=== PATIENT | female | born 1935 | race Caucasian/White ===

== ENCOUNTER 2020-08-21 14:07 | Outpatient (REF) | payer MEDICARE, SELFPAY ==
[2020-08-21 18:15] LABS: Glucose Urine UA NEG (NEG); Leukocyte Esterase Urine NEG (NEG); Nitrite Urine NEG (NEG); PH 6.5 (5.0-8.0); Specific Gravity - Urine 1.015 (1.005-1.025); Urine Blood NEG (NEG); Urine Ketones NEG (NEG); Urine Protein NEG (NEG-TRACE)
[2020-08-21 18:16] LABS: Appearance Urine CLEAR; Color Urine YELLOW
== END 2020-08-21 14:08 | disposition home or self-care (01) ==
LOC: HO.MANLNP 14:07
PROVIDERS: PCP Internal Medicine; Visit Provider Internal Medicine
DX: N39.0 Urinary tract infection, site not specified (principal)
CPT/HCPCS: 81003; 87086; 87088; 87186

== ENCOUNTER 2020-09-04 11:25 | Outpatient (REF) | payer MEDICARE, MEDICAID, SELFPAY ==
[2020-09-04 13:23] LABS: Alanine Aminotransferase 17 U/L (0-31); Albumin Level 3.7 g/dL (3.5-5.0); Alkaline Phosphatase 83 U/L (39-117); Anion Gap 15 (12-20); Aspartate Amino Transferase 15 U/L (5-31); Bilirubin Total 0.6 mg/dL (0.0-1.0); Blood Urea Nitrogen 45 mg/dL (9-16); Calcium 8.9 mg/dL (8.4-10.2); Carbon Dioxide 23 mmol/L (22-29); Chloride 105 mmol/L (96-108); Estimated Glomerular Filt Rate 29; Glucose Random 126 mg/dL (60-115); Potassium 5.3 mmol/L (3.3-5.1); Sodium 138 mmol/L (135-145)
== END 2020-09-04 11:26 | disposition home or self-care (01) ==
LOC: HO.MANLDS 11:25
PROVIDERS: PCP Internal Medicine; Visit Provider Physician Assistant
DX: N18.9 Chronic kidney disease, unspecified (principal)
CPT/HCPCS: 36415; 80053

== ENCOUNTER 2021-02-03 10:39 | Outpatient (REF) | payer MEDICARE, MEDICAID, SELFPAY ==
[2021-02-03 12:45] LABS: MANUAL DIFF FLAG NO
[2021-02-03 13:04] LABS: Basophils Percent Auto 0.2 % (0-2); Eosinophils Absolute Auto 0.1 X10*3/uL (0.0-0.4); Eosinophils Percent Auto 0.8 % (0-4); Hematocrit 42.8 % (37-47); Hemoglobin 13.9 g/dl (12.0-16.0); Imm Gran Abs Auto 0.07 X10*3/uL (0.00-0.03); Imm Gran Pct Auto 0.6 % (0.0-0.4); Lymphocytes Absolute Auto 1.4 X10*3/uL (1.2-4.9); Lymphocytes Percent Auto 12.6 % (20-40); Mean Corpuscular HGB Conc 32.5 g/dl (31.0-35.0); Mean Corpuscular Hemoglobin 28.5 pg (27.0-33.0); Mean Corpuscular Volume 87.7 fL (80-98); Mean Platelet Volume 10.4 fL (9.4-12.3); Monocytes Absolute Auto 0.9 X10*3/uL (0.1-1.2); Monocytes Percent Auto 7.8 % (2-11); Neutrophils Absolute Auto 8.6 X10*3/uL (2.0-8.3); Platelet Count 243 X10*3/uL (160-400); Red Blood Count 4.88 X10*6/uL (4.20-5.50); Red Cell Distribution Width 13.9 % (11.0-16.0); White Blood Count 11.1 X10*3/uL (4.8-10.8)
[2021-02-03 13:45] LABS: Alanine Aminotransferase 24 U/L (0-31); Albumin Level 3.8 g/dL (3.5-5.0); Alkaline Phosphatase 86 U/L (39-117); Anion Gap 16 (12-20); Aspartate Amino Transferase 19 U/L (5-31); Blood Urea Nitrogen 14 mg/dL (9-16); Calcium 9.4 mg/dL (8.4-10.2); Carbon Dioxide 28 mmol/L (22-29); Chloride 102 mmol/L (96-108); Estimated Glomerular Filt Rate 38; Glucose Random 200 mg/dL (60-115); Iron 101 mcg/dL (30-160); Percent Iron Saturation 30 % (15-50); Sodium 142 mmol/L (135-145); Total Iron Binding Capacity 333 mcg/dL (228-428); Total Protein 6.3 g/dL (6.5-8.0); Unsaturated Iron Binding 232 ug/dL
[2021-02-03 13:50] LABS: Ferritin 118 ng/mL (10-250); Free T4 (Free Thyroxine) 0.99 ng/dL (0.71-1.85); Thyroid Stimulating Hormone 1.92 uIU/mL (0.32-4.0)
[2021-02-03 14:02] LABS: Folate 8.3 ng/mL (> or = 4.0); Vitamin B12 607 pg/mL (200-900)
== END 2021-02-03 10:40 | disposition home or self-care (01) ==
LOC: HO.MANLDS 10:39
PROVIDERS: PCP Physician Assistant; Visit Provider Physician Assistant
DX: N18.9 Chronic kidney disease, unspecified (principal); R53.83 Other fatigue
CPT/HCPCS: 36415; 80053; 82607; 82728; 82746; 83540; 84439; 84443; 85025

== ENCOUNTER 2024-08-16 10:53 | Outpatient (REF) | payer MEDICARE, MEDICAID, SELFPAY ==
--- OUTSIDE RECORDS SUMMARY | 2024-08-16 12:41 | XMS_ITS | Clinical Summary ---
Author Organization [facility], Address [address] [address] Phone Care Team Providers Care Telephone Recorder Name Role Phone Samuel Gutierrez DO Primary Care Provider [phone] Allergies Active Allergy Reactions Criticality Noted Date Comments Citalopram Other (see comments) Medium 12/19/2018 Other reaction(s): Other Nitrofurantoin 10/02/2020 Quinolones Other (see comments) 03/03/2016 Pt cannot recall rxn Pt cannot recall rxn Sulfa Antibiotics Other (see comments) 10/03/19 Pt cannot recall rxn Medications amLODIPine (NORVASC) 5 MG tablet Take 1 tablet by mouth 1 (one) time each day 1 Active Eliquis 2.5 MG tablet Take 2.5 mg by mouth 2 (two) times a day 1 Active cholecalciferol (VITAMIN D-3 SUPER STRENGTH) 50 MCG (1999 UT) tablet Take 2,000 Units by mouth daily Active Docusate Sodium (DSS) 100 MG capsule Take 100 mg by mouth daily 0 Active donepezil (ARICEPT) 5 MG tablet 0.5 tablets every night 1 Active DULoxetine (CYMBALTA) [address] capsule Take 20 mg by mouth 1 (one) time each day 1 Active loratadine (CLARITIN) 10 MG tablet Take 10 mg by mouth daily 0 Active LORazepam (ATIVAN) 0.5 MG tablet Take 0.5 mg by mouth at night if needed 1 Active nitrofurantoin (MACRODANTIN) 50 MG capsule Take 50 mg by mouth 1 (one) time each day 1 Active propranolol LA (INDERAL LA) 120 MG 24 hr capsule Take 120 mg by mouth 1 (one) time each day 1 Active OLANZapine (ZyPREXA) 5 MG tablet TAKE 1 TABLET BY MOUTH EVERY DAY AT DINNER 1 Active rivaroxaban (Xarelto) 15 MG tablet at bed time Active glimepiride (AMARYL) 2 MG tablet glimepiride 2 mg tablet Active Active Problems Problem Noted Date Diagnosed Date Essential (primary) hypertension 04/09/2021 Stage 3a chronic kidney disease 04/09/2021 Stage 3a chronic kidney disease 10/04/2020 Type 2 diabetes mellitus 08/29/2019 Acute nontraumatic kidney injury 08/03/2019 Overview (10/02/2020): Last Assessment & Plan: Labs today 09/23 reveal acute kidney injury with creatinine up to 1.6 from 1.3 on admission. Baseline creatinine is 0.8-1.4. Patient has been on spironolactone likely for hypertension. -DC spironolactone. -Patient received 5 hours of IV fluids with creatinine only decreasing to 1.5 We will continue with gentle IV fluid hydration overnight -Repeat renal labs in a.m. Benign essential hypertension 07/31/2019 Overview (10/02/2020): Last Assessment & Plan: Blood pressures remain well controlled on outpatient regimen of lisinopril and propranolol and spironolactone -continue outpatient regimen Recurrent urinary tract infection 10/29/2017 Hypertensive disorder 10/29/2017 Congestive heart failure 10/29/2017 Resolved Problems Problem Noted Date Diagnosed Date Resolved Date Unspecified dementia, unspec ified severity, without behavioral disturbance, psychotic disturbance, mood disturbance, and anxiety 10/02/2020 10/02/2020 Overview (10/02/2020): Last Assessment & Plan: Stable cooperative. 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 No evidence of ecchymosis of GI blood loss. H&H stable. Walking disability 09/21/2020 Overview (10/02/2020): Last Assessment & Plan: Patient admitted with 3 days of hip pain as well as elbow and ankle. X-ray evaluation of left ankle, left knee and left hip reveal no evidence of fracture. Patient has been seen by PT/OT and recommendation is for short-term rehab for intensive PT OT. Pain has been managed with oxycodone. -Plan is for short-term rehab placement at [facility]. Daughter has worked with Katrina Matthew and patient is on the list for memory unit. Awaiting bed. Case management involved Pain in hallux 11/23/2019 10/02/2020 Overview (10/02/2020): Last Assessment & Plan: UL negative for DVT. Uric acid level normal. WBCs 12, CRP 13, procalcitonin low at 0.09. Spoke with Dr. Nix. Patient doesn't need antibiotic or steroid at this time. Recommend 3 warm salt water soaks for her foot / day and we will touch bases tomorrow to determine how she is doing. If she is getting worse, will consider Keflex or Bactrim. 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 Presented to the ED with 2-week history of crampy abdominal pain and diarrhea. Reports 50 pound weight loss over the last [address] abdomen and pelvis showed retroperitoneal lymphadenopathy and wall thickening of the terminal ileum. Subsequent MRA abdomen showed left-sided colitis as well as retrocrural, upper abdominal mesenteric lymphadenopathy that may be due to lymphoma. No evidence of arterial occlusion Colonoscopy today demonstrated left-sided colitis of the sigmoid and descending suspected a ischemic. All put together, findings suggest 2 separate processes 1) Abdominal pain and GI bleeding due to ischemic colitis 2) retroperitoneal lymphadenopathy and periaortic masses up to 33 mm x 38 mm as described on CT. --Continue diet as tolerated --Oncology recommendations discussed with Dr. Nix. Patient is agreeable to proceeding with lymph node biopsy. --Case discussed with will arrange lymph node biopsy later today or tomorrow morning Rectal hemorrhage 07/31/2019 10/02/2020 Overview (10/02/2020): Last Assessment & Plan: Bleeding secondary to ischemic colitis/reperfusion injury, resolving She does have some anemia secondary to acute blood loss and hemodilution. H/H today 9.7/29.4. 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, senile onset 01/04/2019 10/02/2020 Osteoarthritis of foot joint 10/29/2017 10/02/2020 Gout 10/29/2017 10/02/2020 Gastroesophageal reflux disease 10/29/2017 10/02/2020 Congenital prolapse of urinary bladder 10/29/2017 10/02/2020 Anxiety 10/29/2017 10/02/2020 Immunizations Name Administration Dates Next Due Influenza Split High Dose Pr eservative Free IM 02/19/2020,03/29/2015 Influenza, Quadrivalent, With Preservative 02/18,04/26/2018 Influenza, Trivalent, Adjuvanted 02/05/2019,03/07,03/01/2016 Pfizer SARS-COV-2 08/07/2020,07/18/2020 Pneumococcal Conjugate 13-Valent 03/29/2015 Pneumococcal Polysaccharide 03/20/2009 Social History Tobacco Use Types Packs/Day Years Used Date Smoking Tobacco: Never Alcohol Use Standard Drinks/Week Comments Never 0 (1 standard drink = 0.6 oz pur e alcohol) Comments Unknown Sex and Gender Information Value Date Recorded Sex Assigned at Not on file Legal Sex Female 12:11 PM EDT Gender Identity Not on file Sexual Orientation Not on file Plan of Treatment Health Maintenance Due Date Last Done Comments Diabetes: Hemoglobin A1C 08/29/2020 Diabetes: Ophthalmology Exam 08/29/2020 Diabetes: Pedal Pulse Checked 08/29/2020 Diabetes: Sensory Foot Exam 08/29/2020 Diabetes: Visual Foot Exam 08/29/2020 Influenza Vaccine (#1) 2024 0, 02/19/2020, 02/05/2019, Additional history exists Pneumococcal Vaccine: 65+ Years Completed 03/29/2015, 03/20/2009 Hepatitis B Vaccine Aged Out No longe r eligible based on patient's age to complete this topic Insurance [facility] MEDICAID [place] Care Teams Telephone Recorder Relationship Specialty Start Date End Date Samuel Gutierrez DO [address] [place] [address] PCP - General Internal Medicine 08/29/20
--- OUTSIDE RECORDS SUMMARY | 2024-08-16 12:41 | XMS_ITS | Continuity of Care Document ---
Author Organization [place] [facility], [facility] Address [address] [place] [address] [place] [address] Assessment No assessment recorded. Plan of Treatment Reminders Order Date Submit Date Provider Last Modified By Organization Details Last Modified Time Details Appointments NEW PROBLEM 15 2024 10:15A BEN MUNSON Not available Not available Not available Lab C reactive protein, QN, serum or plasma 2024 025 [facility], [address] [place] [address], [id number], 08/16/2024 10:33:26 ESR (erythroc yte sedimenta tion rate), blood 2024 025 [facility], [address] [place] [address], [id number], 08/16/2024 10:33:26 pro BNP (pro B-type natriuret ic peptide), serum or plasma 2024 025 [facility], [address] [place] [address], [id number], 08/16/2024 10:46:08 CMP, serum or plasma 2024 025 [facility], [address] [place] [address], [id number], 08/16/2024 10:46:08 CBC w/ auto diff 2024 025 [facility], [address] [place] [address], [id number], 08/16/2024 10:46:08 Referral None recorded. Procedures None recorded. Surgeries None recorded. Imaging None recorded. Medication Orders Nystop 100,000 unit/gram topical powder 2024 [facility][id number], [address] [place], [place], [id number], 08/16/2024 10:39:45 lorazepam 0.5 mg tablet 2024 [facility] #[id number], [address], [place], [id number], 08/16/2024 10:39:45 cephalexi n 500 mg capsule 2024 [facility] #[id number], [address], [place], [id number], 08/16/2024 10:43:58 Patient TargetsNo targets recorded. Patient InstructionsNo instructions recorded. Reason for Referral None Reported. 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 18777120 Active 2018 Not Available [facility] 2 04:44:59 Acute ischemic colitis 29543611 Active 2019 Not Available [facility] 2 04:44:59 B-cell lymphoma (clinica l) 167655749 Active 2019 Not Available [facility] 2 04:44:59 Type 2 diabetes mellitus 68820392 Active 2019 Not Available [facility] 2 04:44:59 Chronic kidney disease 670369794 Active 2020 Not Available [facility] 2 04:44:59 COVID-19 276123150 Active 2021 Not Available [facility] 2 04:44:59 Atrial fibrilla tion 52901084 Active 2021 Not Available [facility] 2 04:44:59 Depressi ve disorder 88179026 Active 2021 Not Available [facility] 2 04:44:59 Deep venous thrombos is of lower extremit y 811554303 Active 2021 Not Available [facility] 2 04:44:59 Acute urinary tract infectio n 505358630 Active 2021 Not Available [facility] 2 04:44:59 Cough 07093002 Active 2022 Samuel Gutierrez, [address] [place], [address], [facility] 3 11:50:10 Tremor 90586928 Active 2022 BEN BUSBY [address] [place] [address], [phone], [facility] 3 15:13:25 Aspirati on pneumoni a 281367012 Active 2022 BEN BUSBY [address] [place] [address], [address], [facility] 3 15:13:44 Tachycar darya 3580763 Active 2022 BEN BUSBY [address] [place] [address], [address], [facility] 3 15:17:58 Hypomagn esemia 204979316 Active 2022 BEN BUSBY [address] [place] [address], [phone], [facility] 3 15:20:31 Anemia 361335891 Active 2022 BEN BUSBY [address] [place], [address], [facility] 3 12:20:07 Vitamin D deficien cy 59054180 Active 2022 BEN BUSBY [address] [place], [address], [facility] 3 12:20:17 Impaired fasting glycemia 153151240 Active 2022 BEN BUSBY [address] [place], [address], [facility] 3 14:48:38 Francisco hematuri a 987127510 Active 2022 BEN BUSBY [address] [place], [address], [facility] 3 15:05:16 Altered mental status 125374328 Active 2022 BEN BUSBY [address] [place], [address], [facility] 3 12:21:36 Physical decondit ioning 8538889137 9102 Active 2022 BEN BUSBY [address] [place] [address], [address], [facility] 3 12:23:32 Dysuria 34321839 Active 2023 BEN BUSBY [address] [place], [address], [facility] 4 10:21:42 Edema of lower extremit y 157593012 Active 2024 BEN BUSBY [address] [place], [address], [facility] 5 10:31:01 Candidia sis of skin 69647404 Active 2024 BEN BUSBY [address] [place], [address], [facility] 5 10:40:02 Hyperten sive disorder 07873109 Active 2017 Not Available [facility] 2 04:44:59 Gastroes ophageal reflux disease 052569486 Active 2017 Not Available [facility] 2 04:44:59 Type 2 diabetes mellitus 90767048 Completed 201705/29/2019 Removal Reason: sugar a1c 5.1 Samuel Stein Sajanlucy, DO [address] [place], [address], [facility] 0 15:36:56 Recurren t urinary tract infectio n 160004781 Active 2017 Not Available [facility] 2 04:44:59 Congesti ve heart failure 64409895 Active 2017 Not Available [facility] 2 04:44:59 Gout 68742163 Active 2017 Not Available [facility] 2 04:44:59 Osteoart hritis of foot joint 766908508 Active 2017 Not Available [facility] 2 04:44:59 Congenit al prolapse of urinary bladder 01514305 Active 2017 Not Available [facility] 2 04:44:59 Gastriti s 1317087 Active 2017 secondar y to macrobid Not Available [facility] 2 04:44:59 Anxiety 77508231 Active 2017 Not Available [facility] 2 04:44:59 Notes:Some problems listed i n Documents: #[id number], #[id number] could not be added to this patient's chart. Please review these documents and add these problems to the patient's chart manually as needed. Problem Notes None recorded. Medical Equipment None Reported. Allergies Allergen ID Allergen Name Allergen Category Reaction Reaction Severity Criticality Documentation Date Start Date Code Code System Note Provider Name and Address Organization Details Recorded Time 1447 Cipro medicatio n Not available Not available Not available 10/29/201761774 3 RxNorm muscl e weakn ess [facility] 9 15:35:21 1448 Substance with sulfonami de structure and antibacte rial mechanism of action (substanc e) medicatio n Not available Not available Not available 10/29/2017 33717 [address] [facility] 8 08:22:45 1449 Macrodant in medicatio n Not available Not available Not available 10/29/2017 [address] [facility] 8 08:22:51 2914 Levaquin medicatio n Not available Not available Not available 08/22/2018 12706 [address] [facility] 9 10:49:03 3315 citalopra m medicatio n other moderate Not available 01/04/20192018 2556 RxNorm Samuel Gutierrez, DO [address] [place], [address], [facility] 9 15:50:39 Medications Name Sig Start Date Stop Date Status Note LastModified by Organization Details LastModified Time furosemide 40 mg tablet Take 1 tablet every day by oral route. active Not Available Not Available No t Available clotrimazo le 10 mg ann marie Take when needed. 11/12 completed Not Available Not Available Not Available metformin 500 mg tablet TAKE 1 TABLET BY MOUTH EVERY DAY 09/15 completed Not Available Not Available Not Available Colace 100 mg capsule Take 1 capsule every day by oral route. active Not Available Not Available No t Available acetaminop hen 325 mg tablet Take 2 tablets 3 times a day by oral route as needed for 10 days. 2021 active Not Available Not Available Not Avai lable acetaminop hen 650 mg rectal suppositor y active Not Available Not Available Not Available nitrofuran toin macrocryst al 50 mg capsule TAKE 1 CAPSULE BY MOUTH EVERY DAY active Not Available Not Available No t Available cefuroxime axetil 250 mg tablet TAKE 1 TABLET BY MOUTH TWICE DAILY FOR UTI 04/15 completed Not Available Not Available Not Available donepezil 5 mg tablet TAKE ONE-HALF TABLET BY MOUTH EVERY DAY active Not Available Not Available No t Available cefpodoxim e 200 mg tablet TAKE 1 TABLET BY MOUTH TWICE DAILY ON 09/02 completed Not Available Not Available Not Available morphine concentrat e 100 mg/5 mL (20 mg/mL) oral solution Take 0.25 mL every 2 hours by oral route as needed for 10 days. 08/16 completed Not Available Not Available Not Available hydrochlor othiazide 50 mg tablet TK 1 T PO QAM 07/03 completed Not Available Not Available Not Available cephalexin 250 mg capsule 08/26 completed Not Available Not Available Not Available Nystop 100,000 unit/gram topical powder APPLY TO THE AFFECTED AREA TOPICALLY TWICE DAILY 2024 active Not Available Not Available Not Avai lable Claritin 10 mg tablet Take 1 tablet every day by oral route. active Not Available Not Available No t Available propranolo l ER 60 mg capsule,24 hr,extende d release 09/07 completed Not Available Not Available Not Available prednisone 5 mg tablet 02/18 completed Not Available Not Available Not Available olanzapine 5 mg tablet TAKE 1 TABLET BY MOUTH EVERY DAY AT DINNER active Not Available Not Available No t Available Pyridium 200 mg tablet Take 1 tablet 3 times a day by oral route for 5 days. 11/21 completed Not Available Not Available Not Available Elmiron 100 mg capsule Take 1 capsule 3 times a day by oral route. 08/22 completed Not Available Not Available Not Available haloperido l 1 mg tablet 08/16 completed Not Available Not Available Not Available amlodipine 5 mg tablet TAKE 1 TABLET BY MOUTH EVERY DAY active Not Available Not Available No t Available prochlorpe razine maleate 10 mg tablet 02/18 completed Not Available Not Available Not Available Tamiflu 75 mg capsule Take 1 capsule twice a day by oral route for 5 days. 08/16 completed Not Available Not Available Not Available olanzapine 2.5 mg tablet TAKE 1 TABLET BY MOUTH EVERY DAY IN THE EVENING 10/29 completed Not Available Not Available Not Available spironolac tone 25 mg tablet TAKE 1 TABLET BY MOUTH EVERY DAY 12/03 completed Not Available Not Available Not Available amoxicilli n 500 mg tablet 10/29 completed Not Available Not Available Not Available glimepirid e 2 mg tablet Take 1 tablet every day by oral route as needed for 30 days. 05/29 completed Not Available Not Available Not Available lidocaine- prilocaine 2.5 %-2.5 % topical cream 02/18 completed Not Available Not Available Not Available cefadroxil 500 mg capsule 01/04 completed Not Available Not Available Not Available meloxicam 7.5 mg tablet Take 1 tablet every day by oral route for 14 days. 08/22 completed Not Available Not Available Not Available famotidine 20 mg tablet Take 1 tablet every day by oral route for 30 days. 08/16 completed Not Available Not Available Not Available lorazepam 0.5 mg tablet Take 1 tablet every 6 hours by oral route as needed for 30 days. 2024 active Not Available Not Available Not Avai lable cefaclor 250 mg capsule Take 1 capsule every 8 hours by oral route for 7 days. 09/09 completed Not Available Not Available Not Available bisacodyl 10 mg rectal suppositor y active Not Available Not Available Not Available cephalexin 500 mg capsule Take 1 capsule 3 times a day by oral route for 5 days. 2024 active Not Available Not Available Not Avai lable nitrofuran toin macrocryst al 100 mg capsule 10/29 completed Not Available Not Available Not Available lisinopril 10 mg tablet TAKE 1 TABLET BY MOUTH ONCE DAILY 09/04 completed Not Available Not Available Not Available prednisone 50 mg tablet 02/18 completed Not Available Not Available Not Available hyoscyamin e 0.125 mg sublingual tablet 08/16 completed Not Available Not Available Not Available metoprolol tartrate 50 mg tablet TAKE 1 TABLET BY MOUTH TWICE DAILY 03/08 completed Not Available Not Available Not Available omeprazole 20 mg capsule,de layed release Take by oral route for 56 days. 02/18 completed Not Available Not Available Not Available furosemide 20 mg tablet TAKE 1 TABLET BY MOUTH EVERY DAY active Not Available Not Available No t Available propranolo l ER 120 mg capsule,24 hr,extende d release TAKE 1 CAPSULE BY MOUTH EVERY DAY active Not Available Not Available No t Available lorazepam 1 mg tablet TAKE 1/2 TABLET BY MOUTH THREE TIMES DAILY active Not Available Not Available No t Available cefdinir 300 mg capsule TAKE 1 CAPSULE BY MOUTH EVERY 12 HOURS FOR 7 DAYS 02/19 completed Not Available Not Available Not Available fluticason e propionate 50 mcg/actuat ion nasal spray,susp ension [place] 1 spray every day by [facility] [place] route. 07/03 completed Not Available Not Available Not Available clotrimazo le 1 % topical cream APPLY TOPICALLY TO THE AFFECTED AND SURROUNDI NG AREAS TWICE DAILY IN THE MORNING AND IN THE EVENING active Not Available Not Available No t Available doxycyclin e hyclate 100 mg tablet TAKE 1 TABLET BY MOUTH TWICE DAILY FOR 10 DAYS 11/25 completed Not Available Not Available Not Available amoxicilli n 500 mg-potassi um clavulanat e 125 mg tablet TAKE 1 TABLET BY MOUTH EVERY 12 HOURS FOR 5 DAYS active Not Available Not Available No t Available tobramycin 0.3 %-dexameth asone 0.1 % eye drops,susp ension INSTILL 1 DROP INTO AFFECTED EYE(S) BY OPHTHALMI C ROUTE EVERY 6 HOURS 03/25 completed Not Available Not Available Not Available Mucinex 600 mg tablet, extended release Take 1 tablet every 12 hours by oral route for 30 days. 2022 active Not Available Not Available Not Avai lable escitalopr am 10 mg tablet Take 1 tablet every day by oral route. 10/18 completed Not Available Not Available Not Available metoprolol tartrate 25 mg tablet TAKE 1 TABLET BY MOUTH TWICE DAILY active Not Available Not Available No t Available duloxetine 20 mg capsule,de layed release TAKE 1 CAPSULE BY MOUTH EVERY DAY active Not Available Not Available No t Available cholecalci ferol (vitamin D3) 1,250 mcg (50,000 unit) capsule Take 1 capsule every week by oral route. 08/22 completed Not Available Not Available Not Available Colcrys 0.6 mg tablet Take 1 tablet twice a day by oral route for 10 days. 12/05 completed Not Available Not Available Not Available Probiotic 1 tab PO daily active Not Available Not Available No t Available Xarelto 15 mg tablet TAKE 1 TABLET BY MOUTH EVERY DAY 09/04 completed Not Available Not Available Not Available OneTouch Delashly Lancets 30 gauge 06/17 completed Not Available Not Available Not Available Eliquis 5 mg tablet TAKE 1 TABLET(5 MG) BY MOUTH TWICE DAILY active Not Available Not Available No t Available Eliquis 2.5 mg tablet TAKE 1 TABLET BY MOUTH TWICE DAILY 04/08 completed Not Available Not Available Not Available Stimulant Laxative Plus 8.6 mg-50 mg tablet active Not Available Not Available Not Available acetaminop hen 325 mg capsule Take 2 capsules 3 times a day by oral route as needed. 02/24 completed For pain and fever Not Available Not Available Not Available Fluad 65yr up(PF)45 mcg(15 mcgx3)/0.5 mL intramuscu lar syringe 11/12 completed Not Available Not Available Not Available OneTouch Ultra Blue Test Strip TEST four times a day active Not Available Not Available No t Available Fluzone High-Dose (PF) 180 mcg/0.5 mL intramuscu lar syringe 06/17 completed Not Available Not Available Not Available OneTouch Delica Plus Lancet 33 gauge USE 1 LANCET TO TEST BLOOD SUGAR THREE TO FOUR TIMES A DAY 2019 active Not Available Not Available Not Avai lable Fluad 65yr up(PF)45 mcg(15 mcgx3)/0.5 mL intramuscu lar syringe 02/10 completed Not Available Not Available Not Available Fluzone High-Dose Quad (PF) 240 mcg/0.7 mL IM syringe 07/03 completed Not Available Not Available Not Available Vitals Date Recorded Body height Heart rate Oxygen saturation Oxygen saturation in Arterial blood by Pulse oximetry Systolic blood pressure Diastolic blood pressure Provider Name and Address Organization Details Last Updated DateTime 5 149.86 cm 74 /min 94 % 94 % 130 mm[Hg] 82 mm[Hg] Duran Sandhu [facility] 5 10:21:03 Social History Question Answer Notes LastModified by Organizat ion Details LastModified Time Tobacco Smoking Status Former Smoker Pinky conner [facility] 10/29/2017 15:55:58 What Was The Date Of Your Most Recent Tobacco Screening? 08/16/2024 [email or web address] Information not available 08/16/2024 Do You Or Have You Ever Used Any Other Forms Of Tobacco Or Nicotine? No [email or web address] Information not available 09/15/2022 Sex: Unknown Functional Status None recorded. Mental Status None recorded. Family History Nothing Reported. Medical History No medical history recorded. Gynecological HistoryNo gynecological history recorded. Obstetrics History GPAL:G 0 P 0 0 0 0 Immunizations Vaccine Type Date Status Note Provider Nam e and Address Organization Details Recorded Time COVID-19, mRNA, LNP-S, PF, 30 mcg/0.3 mL dose 1 completed Not Available [facility] 04/21/2022 04:45:00 COVID-19, mRNA, LNP-S, PF, 30 mcg/0.3 mL dose 1 completed Not Available [facility] 04/21/2022 04:45:00 Pneumococcal conjugate PCV 13 5 completed Not Available [facility] 04/21/2022 04:45:00 COVID-19, mRNA, LNP-S, PF, 30 mcg/0.3 mL dose 1 completed Not Available [facility] 04/21/2022 04:45:00 Influenza, split virus, quadrivalent, preservative 1 completed Not Available [facility] 04/21/2022 04:45:00 Influenza, split virus, quadrivalent, preservative 8 completed Not Available [facility] 04/21/2022 04:45:00 Influenza, split virus, quadrivalent, preservative 9 completed Not Available [facility] 04/21/2022 04:45:00 Influenza, split virus, quadrivalent, preservative 0 completed Not Available [facility] 04/21/2022 04:45:00 Influenza, split virus, quadrivalent, preservative 0 completed Not Available [facility] 04/21/2022 04:45:00 Past Encounters Encounter ID Performer Location Encounter Start Date Encounter Closed Date Diagnosis/Indication Diagnosis SNOMED-CT Code Diagnosis ICD10 Code Diagnosis Note [id number] BEN BUSBY [facility] [address] [facility] [address] 08/16/2024 10:09:09 08/16/2024 10:46:58 Depression screening 301487674 Z13.31 negative Congestive heart failure 18233730 I50.43 will set up with lab work Dysuria 00974551 R30.0 will set up with 5 days of amoxicilli n Altered mental status 41 9663864 R41.82 ?UTI, will treat, has a very difficult time with the urine collection Edema of paul ower extremity 691898813 R60.0 deferring US echo due to Anxiety 04989561 F41.9 stable Candidiasis of skin 4988 3006 B37.2 stable Health Concerns Section Related Observation LastModified by Organization Detai ls LastModified Time None Recorded Concern Status LastModified by Organization Details LastModified Time None Recorded Payers Encounter Date Sequence Insurance Name Policy Number Policy Alvares Covered Member ID Alvares Member ID Guarantor Name 08/16/2024 2 [place] Antonia J Stephanie [id number] Antonia Stephanie 08/16/2024 1 [place]MEDICARE REPLACEMENT HMO) [id number] Antonia J Stephanie [id number] Antonia Stephanie Notes Date Note Type Note Provider Name a nd Address Organization Details Recorded Time 08/16/2024 text/html c/o LE edema bilateral the patient is here with her daughter, patient has mental status changesthe patient is asleep, daughter is answering question the patient has roseanne LE edema, hx of CHF, her kidney function is mildly lower but otherwise no sig changes, they already bumped up her lasix dose to 40 mg the patient has a cardio, hasn't seen them, was on hospice but was taken out of hospice since she was staying very stable will set up with lab work for the ?CHF and will just treat for possible UTI given difficulty with urine will have them see if [place] will swab her for the flu will write up note for vitals (02), checking her legs, and weight for BEN Stevenson [address] [place] [address], [place], [address], [facility] 08/16/2024 10:46:56 OBGyn Episode No OBEpisode recorded.
--- OUTSIDE RECORDS SUMMARY | 2024-08-16 12:42 | XMS_ITS | Data Portability ---
Author Organization [facility] Home Service Address [address] [place] [address] Assessment Encounter Date Assessment Date Assessment LastModified by Organization Details LastModified Time 08/07/2022 08/07/2022 [id number] [place] [id number] ([facility]) MDM MODERATE MUST MEET 2 OUT OF 3 ELEMENTS: PROBLEMS, DATA OR RISK ELEMENT 1: PROBLEMS ADDRESSED 1 OR MORE CHRONIC ILLNESS WITH EXACERBATION OR 2 OR MORE STABLE CHRONIC ILLNESSES OR 1 UNDIAGNOSED NEW PROBLEM OR 1 ACUTE ILLNESS W/SYMPTOMS OR 1 ACUTE COMPLICATED INJURY ELEMENT 2: DATA MUST MEET 1 OF 3 CATEGORIES CATEGORY 1: REVIEW OF PRIOR EXTERNAL NOTES, REVIEW OF RESULTS, ORDERING OF EACH TEST, ASSESSMENT REQUIRING INDEPENDENT HISTORIAN OR CATEGORY 2: INDEPENDENT INTERPRETATION OF TESTS BY ANOTHER PHYSICIAN OR SPECIALIST OR CATEGORY 3: DISCUSSION OF MGT OR TEST INTERPRETATION W/EXTERNAL PHYSICIAN OR SPECIALIST ELEMENT 3: RISK RISK OF COMPLICATIONS AND/OR MORBIDITY OR MORTALITY OF PATIENT MANAGEMENT PROVIDER MUST THOROUGHLY DOCUMENT EACH ELEMENT THAT IS COVERED Not available 08/07/2022 16:33:14 02/19/2023 02/19/2023 [id number] [place] [id number] ([facility]) MDM MODERATE MUST MEET 2 OUT OF 3 ELEMENTS: PROBLEMS, DATA OR RISK ELEMENT 1: PROBLEMS ADDRESSED 1 OR MORE CHRONIC ILLNESS WITH EXACERBATION OR 2 OR MORE STABLE CHRONIC ILLNESSES OR 1 UNDIAGNOSED NEW PROBLEM OR 1 ACUTE ILLNESS W/SYMPTOMS OR 1 ACUTE COMPLICATED INJURY ELEMENT 2: DATA MUST MEET 1 OF 3 CATEGORIES CATEGORY 1: REVIEW OF PRIOR EXTERNAL NOTES, REVIEW OF RESULTS, ORDERING OF EACH TEST, ASSESSMENT REQUIRING INDEPENDENT HISTORIAN OR CATEGORY 2: INDEPENDENT INTERPRETATION OF TESTS BY ANOTHER PHYSICIAN OR SPECIALIST OR CATEGORY 3: DISCUSSION OF MGT OR TEST INTERPRETATION W/EXTERNAL PHYSICIAN OR SPECIALIST ELEMENT 3: RISK RISK OF COMPLICATIONS AND/OR MORBIDITY OR MORTALITY OF PATIENT MANAGEMENT PROVIDER MUST THOROUGHLY DOCUMENT EACH ELEMENT THAT IS COVERED Not available 02/19/2023 16:39:18 03/07/2024 03/07/2024 [id number] [place] [id number] ([facility]) MDM MODERATE MUST MEET 2 OUT OF 3 ELEMENTS: PROBLEMS, DATA OR RISK ELEMENT 1: PROBLEMS ADDRESSED 1 OR MORE CHRONIC ILLNESS WITH EXACERBATION OR 2 OR MORE STABLE CHRONIC ILLNESSES OR 1 UNDIAGNOSED NEW PROBLEM OR 1 ACUTE ILLNESS W/SYMPTOMS OR 1 ACUTE COMPLICATED INJURY ELEMENT 2: DATA MUST MEET 1 OF 3 CATEGORIES CATEGORY 1: REVIEW OF PRIOR EXTERNAL NOTES, REVIEW OF RESULTS, ORDERING OF EACH TEST, ASSESSMENT REQUIRING INDEPENDENT HISTORIAN OR CATEGORY 2: INDEPENDENT INTERPRETATION OF TESTS BY ANOTHER PHYSICIAN OR SPECIALIST OR CATEGORY 3: DISCUSSION OF MGT OR TEST INTERPRETATION W/EXTERNAL PHYSICIAN OR SPECIALIST ELEMENT 3: RISK RISK OF COMPLICATIONS AND/OR MORBIDITY OR MORTALITY OF PATIENT MANAGEMENT PROVIDER MUST THOROUGHLY DOCUMENT EACH ELEMENT THAT IS COVERED Not available 03/07/2024 14:24:41 Plan of Treatment Reminders Order Date Submit Date Provider Last Modified By Organization Details Last Modified Time Details Appointments NEW PROBLEM 15 2024 10:15A BEN MUNSON Not available Not available Not available Lab C reactive protein, QN, serum or plasma 2024 025 [facility], [address] [place] [address], [address], 08/16/2024 10:33:26 ESR (erythroc yte sedimenta tion rate), blood 2024 025 [facility], [address] [place] [address], [address], 08/16/2024 10:33:26 pro BNP (pro B-type natriuret ic peptide), serum or plasma 2024 025 [facility], [address] [place] [address], [place], [address], 08/16/2024 10:46:08 CMP, serum or plasma 2024 025 [facility], [address] [place] [address], [address], 08/16/2024 10:46:08 CBC w/ auto diff 2024 025 [facility], [address] [facility], [place], [address], 08/16/2024 10:46:08 magnesium , serum or plasma 2022 023 [facility] Katrina Matthew, [address], [place], [address], 09/15/2022 15:25:18 magnesium , serum or plasma 2022 023 [facility], [place], [address], 09/22/2022 10:01:37 Referral None recorded. Procedures None recorded. Surgeries None recorded. Imaging US, echocardi ogram 2022 023 [email or web address] 10 Not available 09/23/2022 08:56:53 Medication Orders Nystop 100,000 unit/gram topical powder 2024 025 [id number], [address], [place], [id number], 08/16/2024 10:39:45 lorazepam 0.5 mg tablet 2024 025 [facility] #[id number], [address] [place], [place], [id number], 08/16/2024 10:39:45 cephalexi n 500 mg capsule 2024 025 [email or web address] #[id number], [address], [place], [phone], 08/16/2024 10:43:58 Patient TargetsNo targets recorded. Patient Instructions Encounter Date Encounter Id Patient Instructions Last Modified By Organization Details Last Modified Time 08/07/2022 [id number] pulse oximetry* Not available 08/07/2022 16:33:15 02/19/2023 [id number] pulse oximetry* Not available 02/19/2023 16:41:07 03/07/2024 [id number] pulse oximetry* Not available 03/07/2024 14:25:01 Reason for Referral None Reported. Results Created Date Observation Date Name Description Value Unit Range Abnormal Flag Note LastModifiedBy Organization Detail LastModifiedTime 08/08/19 23 08/07/2022 pulse oxime try* Result 98 Not Available [facility] [address] [facility] [address], [place], [address], 06/30/2022 16:30:20 02/20/20 23 02/19/2023 pulse oxime try* Result 98 Not Available [facility] [address] [facility] [address], [place], [address], 02/16/2023 08:45:23 03/07/20 24 03/07/2024 pulse oxime try* Result 97 Not Available [facility] [address] [facility] [address], [place], [address], 03/06/2024 11:29:46 08/31/19 23 08/30/2022 CT, head, w/o contr ast No observ ation record ed. [facility] (Emergency Room) [address] [place] [address], [address], 08/30/2022 07:38:34 Result Notes None recorded. 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 87237575 Active 2018 Not Available [facility] 2 04:44:59 Acute ischemic colitis 49360740 Active 2019 Not Available [facility] 2 04:44:59 B-cell lymphoma (clinica l) 082056203 Active 2019 Not Available [facility] 2 04:44:59 Type 2 diabetes mellitus 41594191 Active 2019 Not Available [facility] 2 04:44:59 Chronic kidney disease 775040927 Active 2020 Not Available [facility] 2 04:44:59 COVID-19 661212129 Active 2021 Not Available [facility] 2 04:44:59 Atrial fibrilla tion 88295240 Active 2021 Not Available [facility] 2 04:44:59 Depressi ve disorder 81371427 Active 2021 Not Available [facility] 2 04:44:59 Deep venous thrombos is of lower extremit y 471023698 Active 2021 Not Available [facility] 2 04:44:59 Acute urinary tract infectio n 510502918 Active 2021 Not Available [facility] 2 04:44:59 Cough 41667516 Active 2022 Samuel Gutierrez, DO [address] [place], [address], [facility] [place] 3 11:50:10 Tremor 59117797 Active 2022 BEN BUSBY [address] [place], [address], [facility] [place] 3 15:13:25 Aspirati on pneumoni a 036483898 Active 2022 BEN BUSBY [address] [place], [address], [facility] [place] 3 15:13:44 Tachycar darya 1432408 Active 2022 BEN BUSBY [address] [place], [address], [facility] [place] 3 15:17:58 Hypomagn esemia 298858672 Active 2022 BEN BUSBY [address] [place], [address], [facility] [place] 3 15:20:31 Anemia 539930699 Active 2022 BEN BUSBY [address] [place], [address], [facility] [place] 3 12:20:07 Vitamin D deficien cy 02903731 Active 2022 BEN BUSBY [address] [place], [address], [facility] [place] 3 12:20:17 Impaired fasting glycemia 377206239 Active 2022 BEN BUSBY [address] [place] [address], [address], [facility] [place] 3 14:48:38 Francisco hematuri a 558711936 Active 2022 BEN BUSBY [address] [place] [address], [address], [facility] [place] 3 15:05:16 Altered mental status 364830836 Active 2022 BEN BUSBY [address] [place] [address], [address], [facility] [place] 3 12:21:36 Physical decondit ioning 5083410535 9102 Active 2022 BEN BUSBY [address] [place] [address], [address], [facility] [place] 3 12:23:32 Dysuria 07580269 Active 2023 BEN BUSBY [address] [place] [address], [address], [facility] [place] 4 10:21:42 Edema of lower extremit y 881697614 Active 2024 BEN BUSBY [address] [place] [address], [address], [facility] [place] 5 10:31:01 Candidia sis of skin 72900326 Active 2024 BEN BUSBY [address] [place], [address], [facility] [place] 5 10:40:02 Hyperten sive disorder 00310178 Active 2017 Not Available [facility] 2 04:44:59 Gastroes ophageal reflux disease 990121885 Active 2017 Not Available [facility] 2 04:44:59 Type 2 diabetes mellitus 18951676 Completed 201705/29/2019 Removal Reason: sugar a1c 5.1 Samuel Gutierrez DO [address] [place], [address], [facility] [place] 0 15:36:56 Recurren t urinary tract infectio n 103174948 Active 2017 Not Available [facility] 2 04:44:59 Congesti ve heart failure 30778303 Active 2017 Not Available [facility] 2 04:44:59 Gout 58296397 Active 2017 Not Available [facility] 2 04:44:59 Osteoart hritis of foot joint 426247738 Active 2017 Not Available [facility] 2 04:44:59 Congenit al prolapse of urinary bladder 21624371 Active 2017 Not Available [facility] 2 04:44:59 Gastriti s 4531608 Active 2017 secondar y to macrobid Not Available [facility] 2 04:44:59 Anxiety 16105701 Active 2017 Not Available [facility] 2 04:44:59 Notes:Some problems listed i n Documents: #[id number], #[id number] could not be added to this patient's chart. Please review these documents and add these problems to the patient's chart manually as needed. Problem Notes None recorded. Procedures Surgical History None recorded. Imaging Results Imaging Date Name Status LastModified by [email or web address] Details LastModified Time 08/30/2022 CT, head, w/o contrast completed [facility] (Emergency Room) [address] [place], [address], 08/30/2022 07:38:34 Procedure Notes None recorded. Medical Equipment None Reported. Allergies Allergen ID Allergen Name Allergen Category Reaction Reaction Severity Criticality Documentation Date Start Date Code Code System Note Provider Name and Address Organization Details Recorded Time 1447 Cipro medicatio n Not available Not available Not available 10/29/201785670 3 RxNorm muscl e weakn ess Yesenia Kunal conner [facility] 9 15:35:21 1448 Substance with sulfonami de structure and antibacte rial mechanism of action (substanc e) medicatio n Not available Not available Not available 10/29/2017 55418 8003 SNOMED Yesenia conner [facility] 8 08:22:45 1449 Macrodant in medicatio n Not available Not available Not available 10/29/2017 4 RxNorm Yesenia Kunal conner [facility] 8 08:22:51 2914 Levaquin medicatio n Not available Not available Not available 08/22/201800990 2 RxNorm Keyonna conner [facility] 9 10:49:03 3315 citalopra m medicatio n other moderate Not available 01/04/20192018 2556 RxNorm Samuel Gutierrez, DO [address] [place], [address], [facility] [place] 9 15:50:39 Medications Name Sig Start Date [...] propionate 50 mcg/actuat ion nasal spray,susp ension Capulin 1 spray every day by intranasa l route. 07/03 completed Not Available Not Available [...] Available Not Available Not Available OneTouch Delica Lancets 30 gauge 06/17 completed Not Available [...] Not Available Vitals Date Recorded Body height Body mass index (BMI) Body weight Heart rate Systolic blood pressure Diastolic blood pressure Provider Name and Address Organization Details Last Updated DateTime 3 151.77 cm 33.1 kg/m2 21615.6 g 66 /min 116 mm[Hg] 78 mm[Hg] Samuel Gutierrez DO [address] [place], [address] Ayed [facility] 3 16:04:04 Date Recorded Body height Body mass index (BMI) Body weight Heart rate Oxygen saturation Oxygen saturation in Arterial blood by Pulse oximetry Systolic blood pressure Diastolic blood pressure Provider Name and Address Organization Details Last Updated DateTime 3 151.77 cm 32.5 kg/m2 13855.7 4 g 107 /min 98 % 98 % 110 mm[Hg] 68 mm[Hg] Luzmaria Sloan [facility] 3 15:04:57 Date Recorded Body height Heart rate Oxygen saturation Oxygen saturation in Arterial blood by Pulse oximetry Body mass index (BMI) Body weight Systolic blood pressure Diastolic blood pressure Provider Name and Address Organization Details Last Updated DateTime 3 151.77 cm 53 /min 98 % 98 % 32.3 kg/m2 03555.1 5 g 116 mm[Hg] 63 mm[Hg] Ida Bell [facility] 3 16:18:53 Date Recorded Body height Body mass index (BMI) Body weight Heart rate Oxygen saturation Oxygen saturation in Arterial blood by Pulse oximetry Systolic blood pressure Diastolic blood pressure Provider Name and Address Organization Details Last Updated DateTime 4 149.86 cm 33.1 kg/m2 88058.1 5 g 51 /min 97 % 97 % 120 mm[Hg] 74 mm[Hg] Luzmaria Sloan [facility] 4 14:05:18 Date Recorded Body height Heart rate Oxygen saturation Oxygen saturation in Arterial blood by Pulse oximetry Systolic blood pressure Diastolic blood pressure Provider Name and Address Organization Details Last Updated DateTime 5 149.86 cm 74 /min 94 % 94 % 130 mm[Hg] 82 mm[Hg] Duran Sandhu [facility] 5 10:21:03 Social History Question Answer Notes LastModified by Organizat ion Details LastModified Time Tobacco Smoking Status Former Smoker Pinky conner [facility] 10/29/2017 15:55:58 What Was The Date Of Your Most Recent Tobacco Screening? 08/16/2024 [email or web address] Information not available 08/16/2024 Do You Or Have You Ever Used Any Other Forms Of Tobacco Or Nicotine? No [email or web address] Information not available 09/15/2022 Sex: Unknown Functional [...] mcg/0.3 mL dose 1 completed Not Available [facility] 04/21/2022 04:45:00 COVID-19, mRNA, LNP-S, PF, 30 mcg/0.3 mL dose 1 completed Not Available [facility] 04/21/2022 04:45:00 Pneumococcal conjugate PCV 13 5 completed Not Available [facility] 04/21/2022 04:45:00 COVID-19, mRNA, LNP-S, PF, 30 mcg/0.3 mL dose 1 completed Not Available [facility] 04/21/2022 04:45:00 Influenza, split virus, quadrivalent, preservative 1 completed Not Available [facility] 04/21/2022 04:45:00 Influenza, split virus, quadrivalent, preservative 8 completed Not Available [facility] 04/21/2022 04:45:00 Influenza, split virus, quadrivalent, preservative 9 completed Not Available [facility] 04/21/2022 04:45:00 Influenza, split virus, quadrivalent, preservative 0 completed Not Available [facility] 04/21/2022 04:45:00 Influenza, split virus, quadrivalent, preservative 0 completed Not Available [facility] 04/21/2022 04:45:00 Past Encounters Encounter ID Performer Location Encounter Start Date Encounter Closed Date Diagnosis/Indication Diagnosis SNOMED-CT Code Diagnosis ICD10 Code Diagnosis Note [id number] DO [facility] [address] [facility] [address] 10/29/2017 15:43:15 10/29/2017 16:41:00 Diabetes mellitus 55632633 E11.9 a1c is excellent at 5.7 Fatigue 45414726 R53.83 will do labwork for fatigue Recurrent urinary tract infection 011952692 N39.0 note has open prescripti on for macrobid! given by urologist for which she has been using on avg every couple months long discussion re problem of chronic abx long talk with pt and daughter will bring us urine from now on before taking abx Hypertensive disorder 38 805702 I10 stable no issues Atrial fibrillation 4943 6004 I48.91 [id number] Samuel Gutierrez, [facility] [address] [facility] [address] 11/12/2017 15:20:36 11/12/2017 16:25:39 Type 2 diabetes mellitus 83191442 E11.9 stable Hypertensive disorder 38 745682 I10 stable no issues Recurrent urinary tract infection 992407951 N39.0 note has open prescripti on for macrobid! given by urologist for which she has been using on avg every couple months long discussion re problem of chronic abx long talk with pt and daughter will bring us urine from now on before taking abx Hamstring sprain 2480917 00 S76.312A [id number] Alessandra Kern NP, S [facility] [address] [facility] [address] 03/07/2018 10:18:16 03/07/2018 11:27:00 Increased frequency of urination 423239089 R35.0 Memory impairment 655247 006 R41.3 Essential hypertension 61147399 I10 Type 2 darya betes mellitus 95967783 E11.42 Anxiety 23009613 F41.9 heightened , follow [id number] Alessandra Kern NP, S [facility] [address] [facility] [address] 03/18/2018 15:47:53 03/21/2018 11:02:11 Chronic interstitial cystitis 800395492 N30.10 Vitamin D deficiency 347 86503 E55.9 Hypertensive disorder 38 856676 I10 stable Type 2 darya betes mellitus 70491392 E11.42 A1C 5.5 d/c metformin, continue to check BS, if > 150 consistent ly will restart 1/2 tab metformin Anxiety 02515616 F41.9 heightened , follow Memory impairment 517851 006 R41.3 (-) MRI . keep appt for neuro psych testing [id number] Samuel Gutierrez [facility] [address] [facility], [place] [address] 06/17/2018 15:08:47 06/17/2018 15:55:45 Type 2 diabetes mellitus 86539941 E11.9 stable needs a1c done Congestive heart failure 81896598 I50.9 currently stable Hypertensive disorder 38 039040 I10 stable no issues Recurrent urinary tract infection 382860521 N39.0 note has open prescripti on for macrobid! given by urologist for which she has been using on avg every couple months long discussion re problem of chronic abx long talk with pt and daughter will bring us urine from now on before taking abx Sleep disorder 18427597 G47.9 try to find out if we can get a home sleep study Essential hypertension 03382408 I10 [id number] Alessandra Kern NP, S [facility] [address] [facility], [place] [address] 07/06/2018 15:27:13 07/08/2018 09:40:05 Type 2 diabetes mellitus 30071518 E11.42 well controlled Hypertensive disorder 38 894529 I10 stable Viral syndrome 836817997 B34.9 rest, stay hydrated, use humidifier Depressive disorder 3548 9007 F32.1 to begin citalopram and f/u [id number] Samuel Gutierrez [facility] [address] [facility], [place] [address] 08/16/2018 16:00:33 08/16/2018 16:00:57 Dysuria 98928292 R30.0 [id number] Samuel Gutierrez [facility] [address] [facility], [place] [address] 08/22/2018 10:40:36 08/22/2018 11:26:41 Hypertensive disorder 66452198 I10 stable no issues Congestive heart failure 11214542 I50.9 currently stable Recurrent urinary tract infection 278927894 N39.0 given cefaclor fo recent uti long discussion re problem of chronic abx will need US to check for function and residual volumes [id number] Samuel Gutierrez [facility] [address] [facility],[place] [address] 09/09/2018 16:11:06 09/12/2018 08:20:38 Congestive heart failure 58921337 I50.9 currently stable Type 2 darya betes mellitus 46920570 E11.9 stable needs a1c done Samuel Gutierrez [facility] [address] [facility],[place] [address] 10/11/2018 13:38:41 10/11/2018 14:48:34 Dysuria 86279260 R30.0 Samuel Gutierrez [facility] [address] [place] [address] 10/18/2018 16:05:57 10/18/2018 16:40:51 Congestive heart failure 28625518 I50.9 currently stable Hypertensive disorder 38 176074 I10 stable no issues Type 2 darya betes mellitus 94623983 E11.9 stable needs a1c done Urinary incontinence 165 029193 R32 ongoing dysuria [id number] Samuel Gutierrez [facility] [address] [place] [address] 11/21/2018 12:17:38 11/21/2018 13:03:29 Gouty arthropathy 527507233 M10.09 has noted reddness and pain of her left big toe vert tender to touch Poor short -term memory 056326608 R41.3 await results of the short term memory evaluation Hypertensive disorder 38 309401 I10 stable no issues Congestive heart failure 97644185 I50.9 currently stable Knee pain 13725966 M25.5 69 [id number] Samuel Gutierrez [facility] [address] [place] [address] 12/05/2018 12:15:44 12/05/2018 13:00:20 Type 2 diabetes mellitus 01530094 E11.9 stable needs a1c done has taken to doing her own metformin dosing told pt she cannot due this told her to stop Memory impairment 364183 [address] nino re seeming progressiv e memory loss and pt is not cooperativ e cont to confabulat e at times 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, senile onset 828716966 G30.1 will start aricept in 1 week and will continue tx with the duloxetine now as we stop the citalopram Hypertensive disorder 38 274285 I10 stable no issues [id number] Samuel Gutierrez [facility] [address] [facility] [address] 02/10/2019 15:30:11 02/10/2019 16:09:59 Hypertensive disorder 45625918 I10 stable no issues, will need to watch bp as she has cont to lose wgt Type 2 darya betes mellitus 75810954 E11.9 stable a1c done 5.4 in december is fine has taken to doing her own metformin dosing but i am worried re her creat etc and hence will told pt to stop metformin will be getting eyes checked Congestive heart failure 34414746 I50.9 currently stable no sob 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, senile onset 487401777 G30.1 will start aricept in 1 week and will continue tx with the duloxetine also note that she is not eating much meat as she has had a hard time getting it down Dysphagia 42396027 R13.1 0 will need to have this done getting wgt loss and her difficulty with swallowing certain foods Sleep apnea 41959104 G47 .30 not using cpap as she is getting sinus pain 92219 Samuel Gutierrez [facility] [address] [facility] [address] [address] 03/07/2019 14:18:22 03/07/2019 15:30:37 Type 2 diabetes mellitus 59465445 E11.9 stable a1c done 5.4 in december is fine has taken to doing her own metformin dosing but i am worried re her creat etc and hence will told pt to stop metformin will provide with glimepirid e 2mg will be getting eyes checked Contusion of upper arm 90107511 S40.021A is stable and is doing ok overall now taking the advil and her tylenol and will cont with her rom exercises Edema of lower leg 05239 7004 R60.0 may add extra dose of hctz for 2 days to get rid of edema 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, senile onset 070344127 G30.1 did not tolerate full dose of the aricept will cut in half as she did very well 36496 Samuel Gutierrez [facility] [address] [facility] [email or web address] [address] 04/26/2019 16:09:01 04/26/2019 17:04:07 Congestive heart failure 49428002 I50.9 currently stable no sob Hypertensive disorder 38 222137 I10 stable no issues, will need to watch bp as she has cont to lose wgt Type 2 darya betes mellitus 39903101 E11.9 stable a1c done 5.4 in december is fine has taken to doing her own metformin dosing but i am worried re her creat etc and hence will told pt to stop metformin will provide with glimepirid e 2mg will be getting eyes checked Sleep apnea 97492006 G47 .30 not using cpap as she is getting sinus pain Calcific t endinitis of shoulder 37938479 M75.31 19175 Samuel Gutierrez DO [facility] [address] [facility],[place] [address] 05/29/2019 15:20:05 05/29/2019 15:42:21 Impaired fasting glycemia 334424333 R73.01 no longer an issue stop the glimepirid e and type 2 dm is taken off the dx lift Anxiety 95009251 F41.9 having issue with compliance and is admitting to forgetting Paronychia of toe 687674 002 L03.039 75441 Samuel Gutierrez [facility] [address] [facility],[place] [address] 08/04/2019 16:34:59 08/04/2019 17:17:37 Urinary tract infectious disease 65713029 N39.0 no sx UA neg Acute isch emic colitis 41021837 K55.039 [facility] Congestive heart failure 81016775 I50.9 she is exhibiting subjective findings and although her physical exam shows 1=2+ {TE i think we need to resume the hctz will keep an eye on her K+ she relates her weight was up from 157 and now was 165 Hypertensive disorder 38 348520 I10 stable no issues, will need to watch bp as she has cont to lose wgt Retroperit conte lymphadenopathy 591874500 R59.0 we are awaiting her BX results fro the CT guded procedure at [facility] Constipation 48839785 K5 9.00 told her to take stool softener fiber and fluids Anxiety 51383135 F41.9 having issue with compliance and is admitting to forgetting also [place] issues [place] g [address] Samuel Gutierrez [facility] [address] [facility],[place] [address] 08/29/2019 15:15:24 09/04/2019 15:15:05 B-cell lymphoma (clinical) 586544332 C85.10 will be starting the lymphoma chemo protocol Congestive heart failure 56632337 I50.9 she is exhibiting subjective findings and although her physical exam shows 1=2+ {TE i think we need to resume the hctz will keep an eye on her K+ relates k+ is Hypertensive disorder 38 858300 I10 stable no issues, will need to watch bp as she has cont to lose wgt Type 2 darya betes mellitus 35947363 E11.9 will have her follow her sugars followed and have her get some test strips 94178 Samuel Gutierrez [facility] [address] [facility],[place] [address] 10/31/2019 08:59:16 10/31/2019 16:37:09 Type 2 diabetes mellitus 43198065 E11.9 will have her follow her sugars followed will cont to be monitored by the vna last a1c is ok 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 23064 Samuel Gutierrez [facility] [address] [facility], [email or web address] [address] 02/19/2020 15:03:02 02/19/2020 15:51:46 B-cell lymphoma (clinical) 197075713 C85.10 lymphoma chemo protocol may be deferred tomorrow will be seen and determined if she will cont to have this down or wait a week. 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, senile onset 975905809 G30.1 aricept cut in half as she does very well 17979 Samuel Gutierrez [facility] [address] [facility],[place] [address] 04/05/2020 09:39:03 04/05/2020 12:01:55 Hypertensive disorder 69978773 I10 stable no issues, will need to watch bp as she has cont to lose wgt 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, senile onset 429466493 G30.1 aricept cut in half as she does very well and is doing great no further delerium with use of olanzapine and duloxetine she is not requiring lorazepam as much Type 2 darya betes mellitus 87472109 E11.9 will have her follow her sugars followed will cont to be monitored by the vna last a1c is ok Congestive heart failure 39183964 I50.9 cont to be ok and is doing well overall k+ stable with the spironolac tone no sob no cp easily fatigued legs are very fatigue Chronic ur inary tract infection 537429439 N39.0 51958 Samuel Stein Matt, [facility] [address] [facility],[place] [address] 06/17/2020 08:49:41 06/17/2020 16:48:39 Type 2 diabetes mellitus 59638666 E11.9 will have her follow her sugars followed will cont to be monitored by the vna last a1c is ok Hypertensive disorder 38 809198 I10 stable no issues, will need to watch bp as she has cont to lose wgt 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, senile onset 646060728 G30.1 pts daughter says she has been more agitated as of late aricept cut in half as she does very well and is doing great no further delerium with use of olanzapine and duloxetine she is not requiring lorazepam as much Ataxic gait 43533785 R26 .0 55065 Samuel JamesKaden Gutierrez, [facility] [address] [facility], [email or web address] [address] 07/02/2020 11:32:54 07/02/2020 14:56:29 Recurrent urinary tract infection 969624089 N39.0 given cefaclor for last recurrent uti long discussion re problem of chronic abx usage this tinme it was not needed will need US to check for function and residual volumes 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, senile onset 620101397 G30.1 pts daughter says she has been more agitated as of late aricept cut in half as she does very well and is doing great no further delerium with use of olanzapine and duloxetine she is not requiring lorazepam as much Type 2 darya betes mellitus 71404093 E11.9 will have her follow her sugars followed will cont to be monitored by the vna last a1c is ok Congestive heart failure 33387540 I50.9 cont to be ok and is doing well overall k+ stable with the spironolac tone no sob no cp easily fatigued legs are very fatigue B-cell lym phoma (clinical) 219111159 C85.10 lymphoma chemo protocol may be deferred tomorrow will be seen and determined if she will cont to have this down or wait a week. Anxiety 98172281 F41.9 having issue with compliance and is admitting to forgetting also having issues at night almsot a sun-downin g Hypertensive disorder 38 423999 I10 stable no issues, will need to watch bp as she has cont to lose wgt Fatigue 14604151 R53.83 will do labwork for fatigue it has become excessive and quality of life is affe=cted 93014 Samuel Gutierrez DO [facility] [address] [facility],[place] [address] 08/09/2020 12:06:45 08/09/2020 16:07:25 Hypertensive disorder 64761793 I10 stable no issues, will need to watch bp as she has cont to lose wgt Acute urin maria elena tract infection 071369322 N39.0 she is seeming to be much better since being treated for a uti and daughter states she seems much more clear and alert B-cell lym phoma (clinical) 966107551 C85.10 lymphoma chemo protocol may be deferred tomorrow will be seen and determined if she will cont to have this down or wait a week. Congestive heart failure 60784809 I50.9 cont to be ok and is doing well overall k+ stable with the spironolac tone no sob no cp easily fatigued legs are very fatigue seems to be quite stable at this time 48196 BEN BUSBY [facility] [address] [facility],[place] [address] 08/26/2020 14:44:18 08/26/2020 16:17:25 Candidiasis of skin 84454838 B37.2 needs to start combinatio n antifunal and abx for the extent of the skin infection Pain of left calf 864241 5548 973399 M79.662 needs stat fu US to r/o DVT 31868 BEN BUSBY [facility] [address] [facility],[place] [address] 09/04/2020 10:26:49 09/04/2020 15:14:47 Chronic kidney disease 315846869 N18.9 will recheck CMP has fu scheduled with nephro to discuss numbers Essential hypertension 83264398 I10 BP is fine today switched lisinopril to amlodipine due to kidney disease will recheck CMP Deep venou s thrombosis of lower extremity 619605877 I82.402 the patient will fu in 3 mo with repeat US and based on results will decide on blood thinner therapy Panniculitis 88346203 M7 9.3 will continue on the nystatin powder and finish out script will practice good hygiene and fu if it worsens again 10461 Samuel Gutierrez, DO [facility] [address] [facility] [address],[place] [employer] [facility] [address] 12/03/2020 16:27:24 12/03/2020 17:03:23 Hypertensive disorder 55168793 I10 stable no issues, will need to watch bp as she has cont to lose wgt 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, senile onset 667349655 G30.1 pts daughter says she has been more agitated as of late aricept cut in half as she does very well and is doing great no further delerium with use of olanzapine and duloxetine she is not requiring lorazepam as much Type 2 darya betes mellitus 57712754 E11.9 will have her follow her sugars followed will cont to be monitored by the vna last a1c is ok Congestive heart failure 98372712 I50.9 cont to be ok and is doing well overall k+ stable with the spironolac tone no sob no cp easily fatigued legs are very fatigue seems to be quite stable at this time Depressive disorder 3548 9007 F32.1 seems bright and doing good Atrial fibrillation 4943 6004 I48.91 here for a rechk and is doing gtreaty Acute isch emic colitis 35644203 K55.039 here since hospitaliz ation Deep venou s thrombosis of lower extremity 592204268 I82.409 will plan to stop the eliquis in April [facility] [address] [facility] on [address],[place] [employer] [email or web address] [address] 02/03/2021 10:01:37 02/03/2021 10:44:53 Type 2 diabetes mellitus 82326510 E11.42 stable at last check Chronic ki dney disease 922921713 N18.9 will recheck CMP to re-eval her kidneys, possible worsening could lead to swelling LEfu with US recheck kidneys as well Fatigue 32317881 R53.83 will fu with labs to r/o underlying def as cause of fatigue Edema of l ower extremity 689500505 R60.0 will fu with US r/o CHF as cause of LE swelling Obstructio n of lacrimal canaliculus 145826233 H04.549 mild, caused by pooling of the fluids Swelling of eyelid 60585 7004 R22.0 will fu with prescripti on of tobradex 48569 Samuel Guiterrez [facility] [address] [facility],[email or web address] [address] 04/08/2021 16:17:39 04/08/2021 16:55:32 Chronic kidney disease 769381585 N18.9 stable numbers Congestive heart failure 24682396 I50.9 cont to be ok and is doing well overall k+ stable with the spironolac tone no sob no cp easily fatigued legs are very fatigue seems to be quite stable at this time Hypertensive disorder 38 343643 I10 stable no issues, will need to watch bp as she has cont to lose wgtalso we will have her stop the elquis as it has been over 7 mo Pain of le ft shoulder joint [id number] 5813489 M25.512 Ataxic gait 11258173 R26 .0 she has become more unsteady and is clearly a fall risk i believe this is secondary to her dementia but would like to have PT eval her as she certainly has the mental capacity to follow simple instructio n and cues to be safer 14467 Samuel Gutierrez [facility] [address] [facility],[place] [address] 11/18/2021 15:58:41 11/19/2021 08:52:03 Type 2 diabetes mellitus 33054684 E11.42 will have her follow her sugars followed will cont to be monitored by the vna last a1c is 5.8 in october ok Congestive heart failure 77901089 I50.9 cont to be ok and is doing well overall k+ stable with the spironolac tone no sob no cp easily fatigued legs are very fatigue seems to be quite stable at this time Atrial fibrillation 4943 6004 I48.91 here for a rechk and is doing gtreaty Hypertensive disorder 38 577068 I10 stable no issues, will need to watch bp as she has cont to lose wgtalso we will have her stop the elquis as it has been over 7 mo 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 Depressive disorder 3548 9007 F32.1 seems bright and doing good Acute isch emic colitis 88392266 K55.039 here since hospitaliz ation Deep venou s thrombosis of lower extremity 312843410 I82.409 will plan to stop the eliquis in April Samuel Gutierrez, [facility] [address] [facility] [address],[place] [address] 02/24/2022 15:46:17 02/25/2022 09:16:21 Atrial fibrillation 26347862 I48.91 here for a rechk and is doing gtreaty Chronic ki dney disease 650475056 N18.9 stable numbers gfr 55 Hypertensive disorder 38 296834 I10 stable no issues, will need to watch bp as she has cont to lose wgtalso we will have her stop the elquis as it has been over 7 mo Type 2 darya betes mellitus 01561962 E11.42 will have her follow her sugars followed will cont to be monitored by the vna last a1c is 5.8 in october ok Congestive heart failure 51190816 I50.9 cont to be ok and is doing well overall k+ stable with the spironolac tone no sob no cp easily fatigued legs are very fatigue seems to be quite stable at this time 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, senile onset 922624273 G30.1 pts daughter says she has been more agitated as of late aricept cut in half as she does very well and is doing great no further delerium with use of olanzapine and duloxetine she is not requiring lorazepam as much 13217 Samuel Gutierrez DO [facility] [address] [facility] on [address],[place] [facility] [address] 08/07/2022 15:50:43 08/07/2022 16:41:43 Atrial fibrillation 56712260 I48.91 here for a rechk and is doing gtreaty Hypertensive disorder 38 923532 I10 stable no issues, will need to watch bp as she has cont to lose wgtalso we will have her stop the elquis as it has been over 7 mo Congestive heart failure 73545457 I50.9 cont to be ok and is doing well overall k+ stable with the spironolac tone no sob no cp easily fatigued legs are very fatigue seems to be quite stable at this timenoted her BNP is >1000 but she is asymptomat ic currently Type 2 darya betes mellitus 18644141 E11.42 will have her follow her sugars followed will cont to be monitored by the vna last a1c is 5.8 in october ok B-cell lym phoma (clinical) 393823954 C85.10 lymphoma chemo protocol may be deferred tomorrow will be seen and determined if she will cont to have this down or wait a week. 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, senile onset 826713354 G30.1 pts daughter says she has been more agitated as of late aricept cut in half as she does very well and is doing great no further delerium with use of olanzapine and duloxetine she is not requiring lorazepam as much Depressive disorder 1598 9007 F32.1 seems bright and doing good Acute isch emic colitis 06256433 K55.039 here since hospitaliz ation Deep venou s thrombosis of lower extremity 435261748 I82.409 will plan to stop the eliquis in April BEN BUSBY [facility] [address] [facility],[place] [facility] [place] [place] [address] 09/15/2022 14:57:14 09/15/2022 16:07:48 Primary degenerative dementia of the Alzheimer type, senile onset 549040719 G30.1 not significan t changes currently Tremor 64734412 G25.2 ativan is helpful for the Aspiration pneumonia 422 870383 J69.0 resolved in hospital Tachycardia 2815233 R00. 0 discussed metoprolol dosagemay need an extra 25 mg in the afternoon Hypomagnesemia 827540507 E83.42 recheck mag level 95482 Samuel Gutierrez, [facility] [address] [facility], [place] [address] 02/19/2023 16:06:03 02/19/2023 16:44:05 Congestive heart failure 82667621 I50.9 cont to be ok and is doing well overall k+ stable with the spironolac tone no sob no cp easily fatigued legs are very fatigue seems to be quite stable at this time [id number] Samuel Gutierrez, [facility] [address] [facility], [place] [address] 03/07/2024 13:59:35 03/07/2024 14:38:27 Atrial fibrillation 98130860 I48.91 here for a rechk and is doing gtreaty Congestive heart failure 86549093 I50.43 cont to be ok and is doing well overall k+ stable with the spironolac tone no sob no cp easily fatigued legs are very fatigue seems to be quite stable at this time Hypertensive disorder 38 366063 I10 stable no issues, will need to watch bphas no lonnger been losing wgt 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, senile onset 314264157 G30.1 seems to be fading some 'no change in meds [id number] BEN BUSBY [facility] [address] [facility], [place] [address] 08/16/2024 10:09:09 08/16/2024 10:46:58 Depression screening 496894494 Z13.31 negative Congestive heart failure 92756802 I50.43 will set up with lab work Dysuria 15579645 R30.0 will set up with 5 days of amoxicilli n Altered mental status 41 2625198 R41.82 ?UTI, will treat, has a very difficult time with the urine collection Edema of l ower extremity 225731915 R60.0 deferring US echo due to Anxiety 13364336 F41.9 stable Candidiasis of skin 4988 3006 B37.2 stable Health Concerns Section Related Observation LastModified by Organization Detai ls LastModified Time None Recorded Concern Status LastModified by Organization Details LastModified Time None Recorded Advance Directives Directive None Recorded Payers Encounter Date Sequence Insurance Name Policy Number Policy Alvares Covered Member ID Alvares Member ID Guarantor Name 08/07/2022 2 [place] Antonia J Stephanie [id number] Antonia Stephanie 08/07/2022 1 [facility]MEDICARE [place]AC[place] HMO) [id number] Antonia J Stephanie [id number] Atnonia Stephanie 09/15/2022 2 [place] Antonia J Stephanie [id number] Antonia Stephanie 09/15/2022 1 [facility]ARE [place]AC[place] HMO) [id number] Antonia J Stephanie [id number] Antonia Stephanie 02/19/2023 2 [place] Antonia J Stephanie [id number] Antonia Stephanie 02/19/2023 1 [facility]ARE [place]ACEMENT HMO) [id number] Antonia J Stephanie [id number] Antonia Stephanie 03/07/2024 2 [place] Antonia J Stephanie [id number] Antonia Stephanie 03/07/2024 1 [facility]MED[place]ARE [place]AC[place] HMO) [id number] Antonia J Stephanie [id number] Antonia Stephanie 08/16/2024 2 [place] Antonia J Stephanie [id number] Antonia Stephanie 08/16/2024 1 [facility]MEDICARE [place]ACEMENT HMO) [id number] Antonia J Stephanie [id number] Antonia Stephanie Notes Date Note Type Note Provider Name a nd Address Organization Details Recorded Time 08/07/2022 text/html here for rechk a nd is doing ok overallpoor historian due to memory deficithaving no major complaints of painneck gets stiff at times Samuel Gutierrez DO [address] [place], [address], [facility], [place], [facility] 08/07/2022 16:34:07 09/15/2022 text/html hospital d/c patient was admitted to the ER due to AMS, fever, and possible aspiration pneumoniathe patient's daughter is here with her today at her abx patient was admitted for monitoring in the hospital need to check mag level againneeds US echo to determine if tachycardia is related to a new heart conditioncardiomyo kelley, valvular disease, sig regurg will fu with pt and daughter after labs and echo also they abruptly stopped her ativan in the hospital which could cause complications including the worsening tremor we are seeing will fu with MB about this case so he is uptodate TAE CHEN, BEN [address] [place], [address], [facility] [place], [facility] 09/15/2022 15:33:49 02/19/2023 text/html here for rechk a nd is doing ok overallfeels ok andis doing okreviewed a1c is 6.1 microalb is lowcmp is wnlalbumin is better at 3.6all lab is excellent Samuel Gutierrez DO [address] [place], [address], [facility] [place], [facility] 02/19/2023 16:43:33 03/07/2024 text/html here for rechkno w on hospiceeating oksleeps a [place] had a few unresponsive episodes had been eval in ERshe at times doesnt wake up for hours last was feb 17 Samuel Gutierrez DO [address] [place], [address], [facility] [place], [facility] 03/07/2024 14:25:51 08/16/2024 text/html c/o LE edema bilateral the [...] urine will have them see if Katrina Matthew will swab her for the flu will write up note for vitals (02), checking her legs, and weight for BEN Stevenson [address] [place] [address], [place], [address], [facility] 08/16/2024 10:46:56 OBGyn Episode No OBEpisode recorded.
--- OUTSIDE RECORDS SUMMARY | 2024-08-16 12:42 | XMS_ITS | Data Portability ---
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 She presented to the emergency department with repeated falls. Found to have delirium superimposed on her dementia due to UTI and flu A. She was treated with abx, and it was recommended she complete STR. CVS / htn; hx aflutter; dvt; about 4ish years ago left leg; PULM / allergic rhinitis; ENDO / dm; prev on metformin; stopped it 6 yrs ago; a1c have been good; HEME / diffuse large b cell lymphoma; cdh; 6 rounds chemo 2020; Dr Nix; GI / / ayesha; ckd; recurrent uti; RHEUM / ORTHO / arthritis; fibromyalgia; NEURO / anxiety; depression; dementia; unsteady gait; [email or web address] Not available 09/30/2023 09:32:31 09/30/2023 09/30/202309/28: na 141, k 3.7, bun 14, creat 0.90, glucose 209, wbc 8.58, hgb 14.2, hct 44.4 glord Not available 09/30/2023 10:15:20 10/04/2023 10/04/202309/28: na 141, k 3.7, bun 14, creat 0.90, glucose 209, wbc 8.58, hgb 14.2, hct 44.4 glord Not available 10/04/2023 11:39:03 Plan of Treatment Reminders Order Date Submit Date Provider Last Modified By Organization Details Last Modified Time Details Appointments None record ed. Lab None record ed. Referral None record ed. Procedures None record ed. Surgeries None record ed. Imaging None record ed. Medication Orders None record ed. Patient TargetsNo targets recorded. Patient InstructionsNo instructions recorded. Reason for Referral None Reported. Problems Name Problem SNOMED Code Status Onset Date Resolution Date Notes Provider Name and Address Organization Details Recorded Time Deep venous thrombosis 464319053 Active 2020 ANN MARIE [address] [place] [address], [address], [place], [address], [facility] 14:39:22 Essential hypertensio n 60149944 Active 2020 ANN MARIE [address], [address], [place], [address], [facility] 14:39:28 Dementia 10040616 Active 2020 ANN MARIE [address], [address], [place], [address], [facility] 14:39:37 Unsteady when walking 67726863 Active 2020 ANN MARIE [address], [address], [place], [address], [facility] 14:39:46 Acute nontraumati c kidney injury 7484628811975 03 Active 2020 ANN MARIE [address], [address], [place], [address], [facility] 14:44:31 Seasonal allergic rhinitis 896632141 Active 2020 ANN MARIE [address], [address], [place], [address], [facility] 14:48:18 Recurrent urinary tract infection 494347505 Active 2020 ANN MARIE [address], [address], [place], [address], [facility] 14:48:57 Anxiety 29812185 Active [address], [address], [place], [address], [facility] 14:52:19 Arthritis 9774947 Active [address], [address], [place], [address], [facility] 14:52:42 Depressive disorder 69943531 Active [address], [address], [place], [address], [facility] 14:52:50 Diffuse large B-cell lymphoma of stomach 197325952 Active [address], [address], [place], [address], [facility] 14:53:02 Diabetes mellitus 59298326 Active [address], [address], [place], [address], [facility] 14:53:06 Fibromyalgi a 158265761 Active [address], [address], [place], [address], [facility] 14:53:17 Difficulty walking 959461503 Active 2020 Maria Del Carmen Frias MD [address] [place] [address], [address], [place], [address], [facility] 1 13:00:20 Chronic kidney disease stage 3 545025055 Active 2020 Maria Del Carmen Frias MD [address] [place] [address], [address], [place], [address], [facility] 1 13:05:28 Problem Notes None recorded. Procedures Surgical History Date Name Laterality Status Provider Name and Address Organization Details Recorded Time hysterectomy completed [address], [address], [place], [address], [facility] 09/24/2020 14:54:02 Imaging Results None recorded. Procedure Notes None recorded. Medical Equipment None Reported. Allergies Allergen ID Allergen Name Allergen Category Reaction Reaction Severity Criticality Documentation Date Start Date Code Code System Note Provider Name and Address Organization Details Recorded Time 27886 citalopra m medicatio n Not available Not available Not available 09/24/2020 2556 RxNorm Not Available Not Available Not Available 00366 ciproflox acin medicatio n Not available Not available Not available 09/24/2020 2551 RxNorm Not Available Not Available Not Available 51002 levofloxa kamran medicatio n Not available Not available Not available 09/24/2020 62958 RxNorm Not Available Not Available Not Available 45770 Product containin g quinolone and antibioti c (product) medicatio n Not available Not available Not available 09/24/2020 15104 008 SNOMED Not Available Not Available Not Available 85163 Substance with sulfonami de structure and antibacte rial mechanism of action (substanc e) medicatio n Not available Not available Not available 09/24/2020 07537 8003 SNOMED Not Available Not Available Not Available Medications Name Sig Start Date Stop Date Status Note LastModified by Organization Details LastModified Time Ativan 0.5 mg tablet Take 1 tablet 3 times a day by oral route. 024 active Not Available Not Available Not Avai lable Vitals Date Recorded Heart rate Respiratory rate Oxygen saturation Oxygen saturation in Arterial blood by Pulse oximetry Systolic blood pressure Diastolic blood pressure Provider Name and Address Organization Details Last Updated DateTime 4 73 /min 18 /min 96 % 96 % 160 mm[Hg] 80 mm[Hg] ANN MARIE LUJAN [address] [place] [address], [facility] [address], [address] , [place] [facility] 10:17:05 Date Recorded Body temperature Oxygen saturation Oxygen saturation in Arterial blood by Pulse oximetry Systolic blood pressure Diastolic blood pressure Provider Name and Address Organization Details Last Updated DateTime 4 97.9 [degF] 95 % 95 % 132 mm[Hg] 82 mm[Hg] ANN MARIEJEANINE LUJAN [address] , [address], [address] , [place] [facility] 4 09:41:33 Date Recorded Body temperature Provider Name a or Address Organization Details Last Updated DateTime 09/27/2023 97.9 [degF] Mcihael Monroy MD [address] , [address], [place], [address], [facility] 09/30/2023 09:28:38 Date Recorded Systolic blood pressure Diastolic blood pressure Provider Name and Address Organization Details Last Updated DateTime 09/30/2023 133 mm[Hg] 65 mm[Hg] ANN MARIE LUJAN [address] [facility], [address], [place], [address], [facility] 09/30/2023 11:54:50 Social History Question Answer Notes LastModified by Organizat ion Details LastModified Time Tobacco Smoking Status Never Smoker smoked for a short time in her 20s Maria Del Carmen Frias MD [address] [facility], [address], [place], [address], [facility] 10/01/2020 11:58:07 Do You Have An Advance Directive? Yes DNR/DNI Information not available 10/01/2020 What Is Your Level Of Alcohol Consumption? None Information not available 09/24/2020 How Much Tobacco Do You Chew? None Information not available 09/24/2020 Do You Or Have You Ever Used E-cigarettes Or Vape? Never Used Electronic Cigarettes Information not available 09/24/2020 Do You Have A Medical Power Of Channel Manager? Yes HCP Invoked Information not available 10/01/2020 What Was The Date Of Your Most Recent Tobacco Screening? 10/01/2020 Information not available 10/01/2020 Do You Or Have You Ever Used Smokeless Tobacco? Never Used Smokeless Tobacco Information not available 09/24/2020 How Much Tobacco Do You Smoke? No Information not available 09/24/2020 Sex: Female Functional Status None recorded. Mental Status None recorded. Family History Relationship Description Onset Age of this Age Resolved Age Notes LastModified by Organization Details LastModified Time Father No current problems or disability glord Not available 09/24 14:44:20 Mother No current problems or disability glord Not available 09/24 14:44:20 Notes:n/c Medical History No medical history recorded. Gynecological HistoryNo gynecological history recorded. Obstetrics History GPAL:G 0 P 0 0 0 0 Immunizations Vaccine Type Date Status Note Provider Russ dobson and Address Organization Details Recorded Time Tdap [address] [facility] 09/23/2023 16:25:33 influenza, unspecified formulation [address] [facility] 09/23/2023 16:26:00 SARS-COV-2 (COVID-19) vaccine, UNSPECIFIED 1 completed Ita [facility] 09/23/2023 16:26:22 COVID-19, mRNA, LNP-S, PF, 30 mcg/0.3 mL dose 1 completed [facility] 09/25/2020 14:07:34 COVID-19, mRNA, LNP-S, PF, 30 mcg/0.3 mL dose 1 completed [facility] 09/25/2020 14:07:41 Influenza, split virus, quadrivalent, preservative 0 completed [facility] 09/25/2020 14:07:56 Pneumococcal conjugate PCV 13 5 completed [facility] 09/25/2020 14:08:11 pneumococcal polysaccharide PPV23 9 completed [facility] 09/25/2020 14:08:21 Past Encounters Encounter ID Performer Location Encounter Start Date Encounter Closed Date Diagnosis/Indication Diagnosis SNOMED-CT Code Diagnosis ICD10 Code Diagnosis Note [id number] [place] [address] 09/24/2020 14:37:55 09/26/2020 11:46:26 Acute nontraumatic kidney injury [id number] 72412 N17.9 bp meds stopped inpatient baseline creat 1.4 monitor labs Essential hypertension 07743140 I10 amlodipine 5 mg daily propranolo l 150 mg daily monitor need to titrate, was previously on lisinopril and spironolac tone monitor bps daily Deep venou s thrombosis 299720830 I82.409 chronic problem eliquis 2.5 mg BID PCP should monitor duration of treatment Dementia 25075131 F03.90 aricept 2.5 mg daily zyprexa 2.5 mg qhs vitamin d3 daily cymbalta 20 mg daily monitor behaviors Seasonal a llergic rhinitis 504927111 J30.2 claritin 10 mg daily Recurrent urinary tract infection 649041718 N39.0 macrobid 50 mg daily for prop. followed by Dr. Elder urology Anxiety 49903912 F41.9 ativan 0.5 mg qhs prn- monitor for increased somnolence monitor mood Diabetes mellitus 859670 09 E11.9 diet controlled states I used to have but it went away [id number] ANN MARIE ROBERTS [address] [place] [address] 09/30/2020 11:03:42 10/02/2020 14:30:13 Dementia 31727364 F03.90 aricept 2.5 mg daily zyprexa 2.5 mg qhs vitamin d3 daily cymbalta 20 mg daily monitor behaviors Invoke HCP now, patient will likely move to memory unit at [facility] [id number] MD AIDA Ken [address] [place] [address] 10/01/2020 11:28:34 10/03/2020 12:35:13 Dementia 86514183 F01.50 Continues at baseline Continue supportive care, expect decline. Continue aricept 2.5 mg qd, zyprexa 2.5 mg qhs, cymbalta 20 mg qd, and lorazepam 0.5 mg qhs prn. HCP invoked Monitor mood and behaviors. Psych consult prn. Apparently no one has told her she is moving to [facility]. She tells me she is anxious to go home. Essential hypertension 12606009 I10 In good control on amlodipine 5 mg qd and propranolo l 150 mg qd. Monitor BP and labs. Acute nont raumatic kidney injury 0877959922 87215 N17.8 Likely due to dehydratio n. Improved with d/c of lisinopril and spironolac tone. Back to baseline. Continue to avoid nephrotoxi c meds as able. Monitor labs. Renal consult prn. Deep venou s thrombosis 250799875 I82.412 I82.432 Found in 08/2020. Continue eliquis 2.5 mg BID for at least 6 months. F/U with PCP for determinat ion of when to d/c. Seasonal a llergic rhinitis 080143667 J30.2 Continue loratadine 10 mg qd. Monitor for sxs. Recurrent urinary tract infection 987933383 N30.20 Continue macrobid 50 mg qd for prophylaxi s. F/U with Dr. Elder, urology, as planned. Anxiety 01890244 F41.1 Continue meds as above. Monitor sxs. Psych consult prn. Diabetes mellitus 329260 09 E11.9 Diet controlled , last HgA1C was 5.7 in 05/2020. Monitor prn. Difficulty walking 60714 2002 R26.89 Has improved significan tly with PT interventi on since here. Does well with walker with no assist. Will be transferri ng to [facility] tomorrow and will continue PT/OT as needed through [facility]. Chronic ki dney disease stage 3 895721915 N18.32 As above. [id number] ANN MARIE ROBERTS [facility] [address] [address] 10/02/2020 08:37:31 10/04/2020 11:16:46 Difficulty walking 675634721 R26.89 Has improved significan tly with PT interventi on since here. Does well with walker with no assist. Will be transferri ng to [facility] tomorrow and will continue PT/OT as needed through [facility]. Dementia 45947997 F01.50 Continues at baseline Continue supportive care, expect decline. Continue aricept 2.5 mg qd, zyprexa 2.5 mg qhs, cymbalta 20 mg qd, and lorazepam 0.5 mg qhs prn. HCP invoked Monitor mood and behaviors. Psych consult prn. Apparently no one has told her she is moving to [facility]. She tells me she is anxious to go home. Essential hypertension 39145708 I10 In good control on amlodipine 5 mg qd and propranolo l 150 mg qd. Monitor BP and labs outpt Acute nont raumatic kidney injury 1653878914 13724 N17.8 Likely due to dehydratio n. Improved with d/c of lisinopril and spironolac tone. Back to baseline. Continue to avoid nephrotoxi c meds as able. Monitor labs. Renal consult prn. Chronic ki dney disease stage 3 640187294 N18.32 As above. Deep venou s thrombosis 001801456 I82.412 I82.432 Found in 08/2020. Continue eliquis 2.5 mg BID for at least 6 months. F/U with PCP for determinat ion of when to d/c. Seasonal a llergic rhinitis 731426801 J30.2 Continue loratadine 10 mg qd. Monitor for sxs. Recurrent urinary tract infection 456324912 N30.20 Continue macrobid 50 mg qd for prophylaxi s. F/U with Dr. Elder, urology, as planned. Anxiety 86935005 F41.1 Continue meds as above. Monitor sxs. Psych consult prn. Diabetes mellitus 137162 09 E11.9 Diet controlled , last HgA1C was 5.7 in 05/2020. Monitor prn. [id number] ANN MARIE ROBERTS [address] [place] [address] 09/23/2023 10:06:21 09/27/2023 10:46:17 Recurrent urinary tract infection 820982767 N30.20 Acute cystitis without hematuriaG iven a dose of fosfomycin . Then placed on ceftriaxon e, urine appears to be mixed. Treat with a total of 5 days of keflex. Influenza caused by Influenza A virus 208806749 J09.X2 family refused tamiflumon itor for sxs Anxiety 26315371 F41.1 continue ativan TIDmonitor mood Depressive disorder 5128 9007 F32.A Depression with anxiety Continue Aricept, Cymbalta, lorazepam and olanzapine [facility] eval if neededmoni tor mood Essential hypertension 95124014 I10 In good control on amlodipine 5 mg qdmetoprol ol 50 mg BIDMonitor BP - high today, consider titrating meds Deep venou s thrombosis 963865103 I82.412 I82.432 Found in 08/2020. Continue eliquis 5 mg BID Seasonal a llergic rhinitis 260081327 J30.2 Continue loratadine 10 mg qd. Monitor for sxs. Chronic ki dney disease stage 3 509441890 N18.32 follow labsmag oxide 480 mg daily [id number] MD AIDA Workman [address] [place] [address] 09/27/2023 18:47:26 10/05/2023 09:22:56 History of fall 667862167 Z91.81 complicati ng uti & flu Urinary tr act infectious disease 96900025 N39.0 finishing atb History of influenza 789 492614 Z87.09 RECENT; rehab History of malignant lymphoma 357458075 Z85.72 diffuse large b cell lymphoma; cdh; 6 rounds chemo 2020; Dr Nix;cbc (09/28) neg; Medication monitoring 39 6875477 Z51.81 [facility] / amlodipine ; toprol;pul m / loratadine ;endo /heme / eliquis 5 mg bid;gi /gu / mag ox; milk of mag;neuro / donepezil; duloxetine ; lorazepam; olanzapine 5 mg hs;id / cephalexin 500 mg bid until (09/28/23); [id number] ANN MARIE ROBERTS [address] [place] [address] 09/29/2023 09:34:28 10/05/2023 09:51:30 Depressive disorder 96269782 F32.A Depression with anxiety- worsening tremor Continue Aricept, Cymbalta, and olanzapine ativan -0.5 mg TIDmonitor for over sedationco nsider propranolo l? Anxiety 07566923 F41.1 keep ativan 0.5 mg TIDmonitor mood Essential hypertension 99982332 I10 In good control on amlodipine 5 mg qdmetoprol ol 50 mg BID- consider change to propranolo l for tremor controlMon itor BP - improved Chronic ki dney disease stage 3 889161888 N18.32 follow labsmag oxide 480 mg daily Diabetes mellitus 666286 09 E11.9 Diet controlled , last HgA1C was 5.7 in 05/2020. last sugars 161, 116, 133- no interventi on warranted [id number] ANN MARIE ROBERTS [address] [place] [address] 09/30/2023 09:54:10 10/05/2023 10:02:21 Diabetes mellitus 70961151 E11.9 still controlled 151 Essential hypertension 54058643 I10 In good control on amlodipine 5 mg qdmetoprol ol 50 mg BID- consider change to propranolo l for tremor controlMon itor BP - improved Constipation 53257878 K5 9.00 add miralax 17 gm dailymonit or for improvemen t [id number] ANN MARIE AIDA ROBERTS [address] [place] [address] 10/04/2023 11:37:17 10/08/2023 13:28:01 Constipation 23594250 K59.00 improved with miralax 17 gm daily Diabetes mellitus 363091 09 E11.9 still controlled , all under 200diet controlled Essential hypertension 07744005 I10 In good control on amlodipine 5 mg qdmetoprol ol 50 mg BID- consider change to propranolo l for tremor control outpt Depressive disorder 3548 9007 F32.A Depression with anxiety- worsening tremor Continue Aricept, Cymbalta, and olanzapine ativan -0.5 mg TID Anxiety 89110792 F41.1 keep ativan 0.5 mg TID Chronic ki dney disease stage 3 552284677 N18.32 follow labs outptmag oxide 480 mg daily Recurrent urinary tract infection 298502653 N30.20 resolved Deep venou s thrombosis 424683438 I82.412 I82.432 Found in 08/2020. Continue eliquis 5 mg BID Seasonal a llergic rhinitis 187181207 J30.2 Continue loratadine 10 mg qd. Health Concerns Section Related Observation LastModified by Organization Detai ls LastModified Time None Recorded Concern Status LastModified by Organization Details LastModified Time None Recorded Advance Directives Directive Y: DNR/DNI Payers Encounter Date Sequence Insurance Name Policy Number Policy Alvares Covered Member ID Alvares Member ID Guarantor Name 09/23/2023 1 [facility] (MEDICARE REPLACEMENT HMO) [id number] Antonia Stephanie [id number] Antonia Stephanie 09/23/2023 2 [place] [facility] Antonia Stephanie [id number] Antonia Stephanie 09/27/2023 1 [facility] (MEDICARE REPLACEMENT HMO) [id number] Antonia Stephanie [id number] Antonia Stephanie 09/27/2023 2 [place] [facility] Antonia Stephanie [id number] Antonia Stephanie 09/29/2023 1 [place]MED[place] HMO) [id number] Antonia Stephanie [id number] Antonia Stephanie 09/29/2023 2 [place] Antonia Stephanie [id number] Antonia Stephanie 09/30/2023 1 [place]MED[place] HMO) [id number] Antonia Stephanie [id number] Antonia Stephanie 09/30/2023 2 [place] Antonia Stephanie [id number] Antonia Stephanie 10/04/2023 1 [place] HMO) [id number] Antonia Stephanie [id number] Antonia Stephanie 10/04/2023 2 [place] Antonia Stephanie [id number] Antonia Stephanie Notes Date Note Type Note Provider Name and Address Organization Details Recorded Time 09/23/2023 text/html This is an 87-year-old female with a history of dementia with behavioral disturbance, hypertension, depression with anxiety, recurrent UTI, DVT and atrial flutter on Eliquis. She presented to the emergency department with repeated falls. Found to have delirium superimposed on her dementia due to UTI and flu A. She was treated with abx, and it was recommended she complete STR. Admitted to facility for continued care and therapy ANN MARIE [address], [address], [place], [address], [facility] 09/23/2023 10:22:44 09/27/2023 text/html This is an 87-year-old female with a history of dementia with behavioral disturbance, hypertension, depression with anxiety, recurrent UTI, DVT and atrial flutter on Eliquis. She presented to the emergency department with repeated falls. Found to have delirium superimposed on her dementia due to UTI and flu A. 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 She presented to the emergency department with repeated falls. Found to have delirium superimposed on her dementia due to UTI and flu A. She was treated with abx, and it was recommended she complete STR.Since admission patients bps were elevated, she was started on amlodipine in addition to her metoprolol. She was also placed on accuchecks as one her of her glucose was 200 and family was very nervous. On review of blood sugars, it appears the nurses are doing it but the actual numbers are not listed. Todays sugar 133Patient sitting in WC, appear in no distress but has visible tremors. Daughters want to make sure she is still on ativan TID as she was at home, confirmed on med list that she is. ANN MARIE LUJAN [address] [place] [address], [address], [place], [address], [facility] 09/29/2023 10:03:46 09/30/2023 text/html This is an 87-year-old female with a history of dementia with behavioral disturbance, hypertension, depression with anxiety, recurrent UTI, DVT and atrial flutter on Eliquis. She presented to the emergency department with repeated falls. Found to have delirium superimposed on her dementia due to UTI and flu A. She was treated with abx, and it was recommended she complete STR.Patients blood sugars and blood pressures being trended, BP today stable 133/65. sugars 151 and 203.SHe is complaining on constipation today ANN MARIE LUJAN [address] [place] [address], [address], [place], [address], [facility] 09/30/2023 11:56:19 10/04/2023 text/html This is an 87-year-old female seen today for discharge summary visit. Patient with a history of dementia with behavioral disturbance, hypertension, depression with anxiety, recurrent UTI, DVT and atrial flutter on Eliquis. She presented to the emergency department with repeated falls. Found to have delirium superimposed on her dementia due to UTI and flu A. She was treated with abx, and it was recommended she complete STR.Patients blood sugars and blood pressures being trended, BP today stable 128/62. sugars 151 and 203. she was started on miralax for constipation, seems to be working well. No new concerns at this visit, she was not aware she was [place] to [place] with meds and services. ANN MARIE LUJAN [address] [facility], [address], [place], [address], [facility] 10/04/2023 11:53:31 OBGyn Episode No OBEpisode recorded.
[2024-08-16 14:07] LABS: MANUAL DIFF FLAG NO
[2024-08-16 14:13] LABS: Basophils Percent Auto 0.2 % (0-2); Eosinophils Absolute Auto 0.1 X10*3/uL (0.0-0.4); Eosinophils Percent Auto 0.8 % (0-4); Hematocrit 35.7 % (37.0-47.0); Hemoglobin 11.7 g/dl (12.0-16.0); Imm Gran Abs Auto 0.06 X10*3/uL (0.00-0.03); Imm Gran Pct Auto 0.5 % (0.0-0.4); Lymphocytes Absolute Auto 1.4 X10*3/uL (1.2-4.9); Lymphocytes Percent Auto 10.7 % (20-40); Mean Corpuscular HGB Conc 32.8 g/dl (31.0-35.0); Mean Corpuscular Hemoglobin 28.2 pg (27.0-33.0); Mean Platelet Volume 10.5 fL (9.4-12.3); Monocytes Absolute Auto 1.1 X10*3/uL (0.1-1.2); Monocytes Percent Auto 8.2 % (2-11); Neutrophils Absolute Auto 10.5 x10*3/uL (2.0-8.3); Neutrophils Percent Auto 79.6 % (45-73); Platelet Count 257 X10*3/uL (160-400); Red Blood Count 4.15 X10*6/uL (4.20-5.50); Red Cell Distribution Width 13.7 % (11.0-16.0); White Blood Count 13.2 X10*3/uL (4.8-10.8)
[2024-08-16 14:52] LABS: B Type Natriuretic Peptide 192 pg/mL (<100)
[2024-08-16 15:02] LABS: Erythrocyte Sedimentation Rate 65 MM/HR (0-20)
[2024-08-16 17:13] LABS: Alanine Aminotransferase 14 U/L (0-31); Albumin Level 3.9 g/dL (3.5-5.0); Alkaline Phosphatase 90 U/L (39-117); Anion Gap 18 (12-20); Aspartate Amino Transferase 18 U/L (5-31); Bilirubin Total 0.7 mg/dL (0.0-1.0); Blood Urea Nitrogen 26 mg/dL (9-16); C Reactive Protein 5.66 mg/dL (< or = 0.50); Calcium 9.9 mg/dL (8.4-10.2); Carbon Dioxide 26 mmol/L (22-29); Chloride 104 mmol/L (96-108); Estimated Glomerular Filt Rate 38; Glucose Random 172 mg/dL (60-115); Potassium 3.5 mmol/L (3.3-5.1); Sodium 144 mmol/L (135-145); Total Protein 7.7 g/dL (6.5-8.0)
== END 2024-08-16 10:54 | disposition home or self-care (01) ==
LOC: HO.MANLDS 10:53
PROVIDERS: Visit Provider Physician Assistant
DX: I50.43 Acute on chronic combined systolic (congestive) and diastolic (congestive) heart failure (principal); R60.0 Localized edema
CPT/HCPCS: 36415; 80053; 83880; 85025; 85652; 86140